=== PATIENT | male | born 1985 | race Caucasian/White ===

== ENCOUNTER 2016-05-06 00:12 | Emergency (ER) | payer OTHER ==
[~2016-05-06] VITALS: Ht 182.9 cm; Wt 80.9 kg
[2016-05-06 00:15] VITALS: BP 138/86; PULSE 89; RESP 16; O2SAT 98
--- NOTE | 2016-05-06 00:26 | ED.REPORT ---
HPI-Back Pain Under 40 Date of Service May 06, 2016 ED Provider: Dr. De Jesus Pt is a 30 y/o male presenting to the ED due to diffuse chest and abdominal pain onset about 1000 today. His pain began after eating breakfast. He notes severe gas at time of onset which gradually resolved. He went about his day and had dinner. After getting home from dinner his pain returned causing severe diffuse abdominal and chest pain. His pain at time of interview is 5/10. He c/o associated mild nausea. He denies bloody stool, constipation, hematuria, vomiting, fever, chills, diarrhea. Nursing Notes Stated Complaint: CHEST/ ABDOMINAL PAIN Chief Complaint: Male Abdominal Pain Nursing Notes Reviewed: Yes Allergies: Coded Allergies: No Known Allergies (Unverified , 05/06/16) General Time Seen by MD: 00:25 Chief Complaint Generalized pain Hx Obtained From: Patient Arrived By: Walk-in Sudden in Onset?: Yes Onset Occurred: 9 - 12 hours ago Symptom Duration: Intermittent Caused by: Spontaneous/no mechanism Location: : Generalized Quality: Painful Severity: Current: Mild Severity: Maximum: Severe Similar Sx Previous: No Past Medical History Past Medical History Denies Past Surgical History None reported Smoking History Never Smoker Social History Alcohol Use: Denies alcohol use Drug Use: Denies drug use Ambulatory Status Independent Review of Systems Constitutional: Denies: Chills, Fever Respiratory: Denies: Shortness of breath Cardiovascular: Reports: Chest pain GI: Reports: Abdominal pain, Nausea, Denies: Bloody/tarry stool, Constipation, Diarrhea, Vomiting Complete sys rev & neg: except as marked. Physical Exam Initial Vital Signs Vital Signs (First) Date Time Temp Pulse Resp B/P Pulse Ox O2 Delivery O2 Flow Rate FiO2 05/06/16 00:15 36.3 89 16 138/86 98 Room Air Initial VS: Reviewed, Vital signs normal Head / Eyes: Atraumatic, Normocephalic, PERRL ENT: Mucous membranes moist, Conjunctiva normal, No scleral icterus Neck: Supple, Full range of motion Respiratory: Breath sounds normal, Clear to auscultation, No respiratory distress Cardiovascular: Heart sounds normal, Intact distal pulses Extremities: Vascular intact, Neuro intact, No swelling, No tenderness Skin: Warm, Dry, No cyanosis Psychiatric: Mood/affect normal, Behavior normal, Normal thought content General/Constitutional: Awake, Alert, No acute distress, Cooperative, Not toxic appearing Back: Atraumatic, Inspection NL, Full range of motion, Painless range of motion , Non-tender, No midline vertebral tend Neurologic: Oriented X3, Speech NL, No motor deficits, No sensory deficits, CN II - XII intact, Memory NL Abdomen: Atraumatic, Soft, No guarding, No rebound, BS normoactive, No distention, No palpable mass Mild bilateral lower abdominal tenderness Interpretation & Diagnostics Lab Results Interpretation Result Diagram: 05/06/161 05/06/16 0041 Test 05/06/16 00:40 05/06/16 00:41 Hold Purple Top Tube Received (Received) Hold Blue Top Tube Received (Received) Hold Red Top Tube Received (Received) Hold [place] Top Tube Received (Received) White Blood Count 9.1th/mm3 (3.8-10.1) Red Blood Count 5.12mil/mm3 (4.40-5.80) Hemoglobin 14.8g/dL (13.8-17.2) Hematocrit 41.9% (41.0-50.0) Mean Corpuscular Volume 81.8fL (81-100) Mean Corpuscular Hemoglobin 28.9pg (27.0-35.0) Mean Corpuscular Hemoglobin Concent 35.3% (32.0-37.0) Red Cell Distribution Width 12.9% (12.3-15.4) Platelet Count 215bil/L (150-400) Neutrophils (%) (Auto) 84.0% (40-74) Lymphocytes (%) (Auto) 11.7% (14-46) Monocytes (%) (Auto) 3.6% (4-12) Eosinophils (%) (Auto) 0.3% (0-5) Basophils (%) (Auto) 0.2% (0-3) Sodium Level 138mEq/L (134-144) Potassium Level 3.9mEq/L (3.5-5.2) Chloride Level 98mEq/L (97-108) Carbon Dioxide Level 28mmol/L (18-29) Blood Urea Nitrogen 11mg/dL (6-20) Creatinine 0.93mg/dL (0.76-1.27) Estimat Glomerular Filtration Rate 102mL/min (>59) Glucose Level 148mg/dL (60-99) Calcium Level 9.8mg/dL (8.5-10.1) Magnesium Level 1.9mg/dL (1.6-2.6) Total Bilirubin 0.4mg/dL (0.0-1.2) Aspartate Amino Transf (AST/SGOT) 17U/L (0-50) Alanine Aminotransferase (ALT/SGPT) 17U/L (0-44) Alkaline Phosphatase 42U/L (25-150) Total Protein 7.2g/dL (6.4-8.4) Albumin 4.6g/dL (3.4-5.0) Lipase 28U/L (13-60) X-Ray Abdominal Interpretation Moderate stool load. Chest appears normal. No signs of SBO. Study: 4 view Interpretation / Wet Read by: Wet read ED physician Re-Eval/Medical Decision Re-Evaluation/Progress : Time of Eval: 02:15 Patient Status: Condition improved, Moderate relief, Pain improved Re-Evaluation/Progress Note: Pt rechecked. Informed pt of plan for treatment. Pt understands and agrees with plan for treatment. F/U instructions and RTER warnings given. All questions addressed. Counseled Regarding: Diagnosis, Lab results, Need for follow-up, When/why to return to ED Discharge & Departure Impression: Primary Impression: Constipation Constipation type: unspecified constipation type Qualified Code: K59.00 - Constipation, unspecified Additional Impression: Abdominal pain Abdominal location: unspecified location Qualified Code: R10.9 - Unspecified abdominal pain Disposition: Home All VS Reviewed: Yes Condition: Stable Patient Instructions: Acute Abdominal Pain (ED), Constipation (ED) Additional Instructions: Your labs today were normal. There was no sign of infection or other dangerous finding. Your abdominal x-ray today showed large amounts of stool which would point towards constipation which could be causing your symptoms. I am prescribing you magnesium citrate today to help with your constipation. Drink the entire bottle when you get home I recommend you see a primary care doctor in follow-up next week. Return to the emergency department for increased pain, uncontrolled vomiting, if you develop a high fever, or for other concerning signs or symptoms. If these occur a CT scan should be performed. Referrals: [facility] Scribe Attestation Portions of this note were transcribed by Андрей Trejo. Dr. Neal Chase personally performed the history, physical exam and medical decision-making; I reviewed and confirmed the accuracy of the information in the transcribed note. Yvonne Rockwell, 05/06/16 - 0052 Eusebio De Jesus DO May 06, 2016 00:26 АНДРЕЙ TREJO May 06, 2016 00:39
[2016-05-06] MEDS ORDERED: 0.9% Sodium Chloride 1,000 ML IV ONE ×2 (01:07→02:02)
[2016-05-06] MEDS ORDERED: Pantoprazole 4 mg/mL 10 mL Inj IVPUSH ONE (01:10)
[2016-05-06] MEDS ORDERED: Ondansetron 2 mg/mL 2 mL Inj IVPUSH PRN (01:10)
[2016-05-06 01:26] LABS: BASOPHILS % (AUTO) 0.2 % (0-3); EOSINOPHILS % (AUTO) 0.3 % (0-5); MONOCYTES % (AUTO) 3.6 % (4-12); Mean Corpuscular Hemoglobin 28.9 pg (27.0-35.0); Mean Corpuscular Volume 81.8 fL (81-100); Platelet Count 215 bil/L (150-400)
[2016-05-06] MEDS: HYDROmorphone 0.5 mg/0.5 mL iSecure Syringe IVPUSH PRN ×2 (01:35→02:07)
[2016-05-06 01:49] LABS: Magnesium 1.9 mg/dL (1.6-2.6)
--- NOTE | 2016-05-06 02:00 | NUR ---
[facility] Note First attempt at speaking with patient, he was out of the room at an X-Ray. Patient returned and appeared in good spirits, joking about not being able to drink fluids ("there's my drink!" when IV fluids brought into the room). Patient appeared tired but stated that he was happy to be here to figure out what was wrong with his stomach.
--- NOTE | 2016-05-06 09:04 | DRSVH ---
PROCEDURE: X-RAY ACUTE ABDOMINAL SERIES ([id number]) INDICATIONS: abdominal pain TECHNIQUE: One view chest and two views of the abdomen were acquired. COMPARISON: [facility], CR, XR CHEST 2VW, 03/12/2016, 19:47. FINDINGS: Surgical changes and devices: None. Chest: Lungs are clear. Heart size is normal. No pleural effusions. No pneumoperitoneum. Abdomen: Bowel gas pattern is normal. Moderate amount of stool noted in the right colon. No suspicio us calcifications. Visualized solid organ contours appear normal. Bones: No suspicious bony lesions. IMPRESSION: No acute disease process identified. Moderate amount of stool noted in the right colon. P lease correlate with clinical findings. Dictated by: Lena Estevez MD, PhD on 05/06/2016 at 9:03 Approved by: Lena Estevez MD, PhD on 05/06/2016 at 9:03
== END 2016-05-06 02:55 | disposition home or self-care (01) ==
LOC: SED 00:12
DX: K59.00 Constipation, unspecified (principal); R10.84 Generalized abdominal pain; R07.9 Chest pain, unspecified; R11.0 Nausea
CPT/HCPCS: 36415; 74022; 80053; 83690; 83735; 85025; 96361; 96374; 96375; 96376; 99285; J1170; J2405; J7030

== ENCOUNTER 2016-09-17 22:32 | Emergency (ER) | payer OTHER ==
[~2016-09-17] VITALS: Ht 182.9 cm; Wt 79.5 kg
[2016-09-17 22:37] VITALS: BP 145/75; PULSE 91; RESP 16; O2SAT 100
--- NOTE | 2016-09-18 00:08 | ED.REPORT ---
HPI-General Illness Date of Service September 18, 2016 ED Provider: Kentrell Baird MD Pt is a 31 y/o male w/ a hx of 2 left-sided pneumothoraces s/p pleurodesis presenting to the ED c/o right-sided chest tightness and SOB onset 1 day ago. He has a history of 2 spontaneous pneumothoraces of his left lung and subsequently had a pleurodesis. His symptoms today are not similar to previous episodes of pneumothorax but his telegraph service rater has told him to be seen if he experiences symptoms similar to this. His pain is exacerbated by deep inspiration. Pt denies any history of PE, DVT, long periods of immobility. Pt denies cough, fever, chills. Nursing Notes Stated Complaint: RT SHOULDER PAIN, HARD TO TAKE A BREATH Chief Complaint: Respiratory Complaints Nursing Notes Reviewed: Yes Allergies: Coded Allergies: No Known Allergies (Unverified , 09/17/16) General Time Seen by MD: 23:03 Chief Complaint Chest pain Hx Obtained From: Patient Arrived By: Walk-in Sudden in Onset?: No Onset Occurred: Yesterday Symptom Duration: Since onset Location: : Chest Quality: Painful, Pleuritic Severity: Current: Moderate Severity: Maximum: Moderate Similar Sx Previous: No Past Medical History Past Medical History Hx 2x spontaneous pneumothorax left lung s/p pleurodesis Past Surgical History Pleurodesis left lung Smoking History Never Smoker Social History Alcohol Use: Denies alcohol use Drug Use: Denies drug use Ambulatory Status Independent Review of Systems Full Review of Systems Constitutional: Denies: Chills, Fever Respiratory: Reports: Pleuritic pain, Shortness of breath, Denies: Non-productive cough Cardiovascular: Reports: Chest pain Complete sys rev & neg: except as marked. Physical Exam Vital Signs Vital Signs Date Time Temp Pulse Resp B/P Pulse Ox O2 Delivery O2 Flow Rate FiO2 09/18/16 00:43 58 24 107/68 98 Room Air 09/17/16 22:37 36.6 91 16 145/75 100 Room Air Initial VS: Reviewed, Vital signs normal Head / Eyes: Atraumatic, Normocephalic, PERRL ENT: Mucous membranes moist, Conjunctiva normal, No scleral icterus Neck: Supple, Full range of motion Cardiovascular: Regular rate & rhythm, Heart sounds normal, Intact distal pulses Abdomen / GI: Soft, Non-tender Extremities: Vascular intact, Neuro intact, No swelling, No tenderness Skin: Warm, Dry, No cyanosis Neurologic: Alert, Oriented, Nonfocal Psychiatric: Mood/affect normal, Behavior normal, Normal thought content General/Constitutional: Awake, Alert, No acute distress, Well appearing, Cooperative, Not toxic appearing Respiratory / Chest: Atraumatic, Breath sounds NL, Breath sounds = bilat, No respiratory distress, No rales, No rhonchi, No wheezing, No retractions, No stridor, No chest tenderness, No chest wall deformity, No crepitus Interpretation & Diagnostics X-Ray Chest Interpretation Chest Xray Interpretation: No pneumothorax View: Portable, AP & lat Interpretation / Wet Read by: Interpret - Radiologist, Discussed w radiologist NL X-Ray Chest Findings: No infiltrate, No fracture, No acute disease Re-Eval/Medical Decision Med Decision/Clinical Course Pt is a 31 y/o male w/ a hx of 2 left-sided pneumothoraces s/p pleurodesis presenting to the ED c/o right-sided chest tightness and SOB onset 1 day ago. He has a history of 2 spontaneous pneumothoraces of his left lung and subsequently had a pleurodesis. His symptoms today are not similar to previous episodes of pneumothorax but his telegraph service rater has told him to be seen if he experiences symptoms similar to this. His pain is exacerbated by deep inspiration. Pt denies any history of PE, DVT, long periods of immobility. Pt denies cough, fever, chills. Chest x-ray was obtained and per my interpretation demonstrated no obvious pneumothorax or focal consolidation. Given the patient's concerning history I contacted the on-call attending radiologist and had them additionally review the films. They stated that there was absolutely no evidence of pneumothorax. Patient remained stable, comfortable and in no respiratory distress. He is advised to follow-up closely with his primary care physician in the next couple of days for repeat chest x- ray. He is advised to return to the emergency room immediately for reevaluation should he develop any progressive or worsening symptoms. Prior to discharge follow-up and return precautions were reviewed in detail with the patient who verbalized understanding and agreement with the plan. The patient was discharged in stable condition. Time of Eval: 00:34 Re-Evaluation/Progress Note: Pt rechecked. Informed pt of plan for treatment. Pt understands and agrees with plan for treatment. F/U instructions and RTER warnings given. All questions addressed. Consultation : Referral / Consult Name: Monae Tate MD Call Returned at: 00:30 Chain Offbearer: Agrees with eval, Agrees with plan Note: Discussed case with radiologist regarding possibility of pneumothorax. Reports there is no pneumothorax. Counseled Regarding: Diagnosis, Need for follow-up, When/why to return to ED Discharge & Departure Primary Impression: Pleurisy Additional Impression: History of pneumothorax Disposition: Home Discharge Condition All VS Reviewed: Yes Condition: Stable Additional Instructions: Thank you for seeking care at the emergency room. It is difficult for us to make definitive diagnoses in the ED but we believe that you are experiencing chest pain caused possibly by pleurisy or muscle sprain. Our primary goal today in the ED was to evaluate you for any life-threatening conditions. Your evaluation was reassuring. The chest x-ray today was normal. You should follow-up with your primary doctor in the next week. You should return to the ED immediately if you develop worsening chest pain, shortness of breath, if you develop a high fever, or any other concerning signs or symptoms. Thank you for letting us partake in your care today Referrals: [facility] (PCP) Scribe Attestation Portions of this note were transcribed by Андрей Trejo. I, Dr. Baird personally performed the history, physical exam and medical decision-making; I reviewed and confirmed the accuracy of the information in the transcribed note. Signed by Yvonne Rockwell, 09/18/16 - 0015 Kentrell Baird MD September 18, 2016 00:08 АНДРЕЙ TREJO September 18, 2016 00:20
[2016-09-18 00:43] VITALS: BP 107/68; PULSE 58; RESP 24; O2SAT 98
--- NOTE | 2016-09-18 08:46 | DRSVH ---
PROCEDURE: X-RAY CHEST, TWO VIEWS ([id number]) INDICATIONS: CHEST PRESSURE TECHNIQUE: 2 views of the chest were acquired. COMPARISON: [facility], CR, XR CHEST 2VW, 03/12/2016, 19:47. FINDINGS: Surgical changes and devices: None. Lungs and pleura: No pleural effusions or pneumothorax. Lungs are clear. Mediastinum: Mediastinal contours are normal. Heart size is normal. Bones and chest wall: No suspicious bony abnormalities. Soft tissues appear unremarkable. IMPRESSION: No acute cardiopulmonary disease. Dictated by: Juan David Martin [facility] Interpreted: Lena Estevez MD on 09/18/2016 at 8:46 Transcribed by: LYNETTE on 09/18/2016 at 8:46 Approved by: Lena Estevez MD, PhD on 09/18/2016 at 9:20
== END 2016-09-18 00:43 | disposition home or self-care (01) ==
LOC: SED 22:32
DX: R09.1 Pleurisy (principal); Z87.09 Personal history of other diseases of the respiratory system